=== PATIENT | female | born 1970 | race Caucasian/White ===

== ENCOUNTER 2020-03-13 07:58 | Day surgery (SDC) | payer OTHER, BC ==
[~2020-03-13] VITALS: Ht 160 cm; Wt 79.8 kg
[~2020-03-13 07:58] MED LIST: ALLEGRA-D 24 H1 EACH PO; AMBIEN10 MG; ATIVAN1 MG PO; AZO URINARY P97.5 MG PO; CALCIUM600 MG PO; CORTISPORIN CR7.5 GM TOP; DEXAMETHASONE4 MG PO; DULCOLAX STOOL100 M1 PO; EMERGEN-C 1,01000 MG PO; FLONASE ALLERG9.9 ML; FLUOXETINE HCL10 M1 PO; IMODIUM A-D2 M2 PO; IRON325 M1 PO; KEFLEX500 MG PO; MIRALAX17 GM PO; ONDANSETRON ODT8 MG PO; PACLITAXEL6 MG/1 ML IV; PREDNISONE20 MG PO; PROBIOTIC1 EAC1 PO; SUDAFED 12 HOU120 MG PO; TESSALON PERLE100 MG PO; THERAFLU SEVER1 EAC3 PO; TYLENOL EXTRA500 MG PO; VITAMIN C500 M1 PO; VITAMIN D35000 UNI1 PO; VITAMIN E100 UNI1 PO
--- NOTE | 2020-03-13 10:34 | NUR ---
03/13/20 1034 Sita Goodson 1019 PT ARRIVED IN PACU NON RESPONSIVE TO NOXIOUS STIMULI WITH OPA IN PLACE. 1033 PT REACTIVE. OPA REMOVED. NO C/O'S.
[2020-03-13] MEDS ORDERED: IBUPROFEN600 MG PO (10:51)
[2020-03-13] MEDS ORDERED: ACETAMINOPHEN500 MG PO (10:52)
[2020-03-13] MEDS ORDERED: OXYCODON-ACETA1 EAC2 PO (10:52)
--- NOTE | 2020-03-13 11:10 | NUR ---
PT IS BACK TO FROM PACU. SHE IS REPORTING NO PAIN, BUT DOES REPORT TINGLING IN HER LEFT HAND. WATER ON BEDSIDE TABLE. CALL LIGHT WITHIN REACH. NO ADDITIONAL NEEDS.
--- NOTE | 2020-03-13 13:04 | NUR ---
PT WAS TAKEN TO [facility] SITTING IN RM WAITING. HE SEEMS TO BE COMFORTABLE HAS NO NEEDS AT THIS TIME. GAVE ENCOURAGEMENT AND BLESSSING. WILL FOLLOW
--- NOTE | 2020-03-14 11:46 | OR ---
[facility] [address] [place], [place] [address] Signed DATE OF OPERATION: 03/13/2020 SURGEON: Trung Coe MD PREOPERATIVE DIAGNOSES: 1. History of stage III triple negative breast cancer, left side, status post modified radical mastectomy, radiation therapy and chemotherapy. 2. Left cervical adenopathy. POSTOPERATIVE DIAGNOSES: Probable metastatic disease to left posterior triangle and external jugular lymph node chain. PROCEDURE: Deep incisional lymph node biopsy, cervical lymph nodes. ANESTHESIA: General LMA; Rubina Mitzi, GENERATION MANAGER, and local 10 mL of 0.25% Marcaine with epinephrine. INDICATION: This 49-year-old white woman is a patient of Dr. Roldan and additionally, Dr. Saleem and Dr. Browning. She underwent a left modified radical mastectomy for a large left breast cancer in [place] over a year ago and subsequent right subcutaneous mastectomy. She has had radiation therapy to the chest wall and supraclavicular area as well as chemotherapy. As her tumor was a triple negative (ER, AL, HER-2/kaykay negative) cancer. She has recently been noted to have adenopathy in the supraclavicular area essentially in the posterior triangle and referred by Dr. Saleem for lymph node biopsy to assess for metastatic disease. She understands the risks of bleeding, infection, nerve injury, and other unforeseen complications related to this procedure and wished to proceed. FINDINGS: Lymphadenopathy was dense and fibrotic and highly suspect for metastatic disease. The lymph node tissue could not be excised completely. Incisional biopsy was undertaken in an anatomic way noting the external jugular vein and additionally, the spinal accessory nerve in relation to the trapezius muscle. Other local structures of the deep neck were identified and preserved. Adequate tissue was excised for pathologic diagnosis, but complete extirpation of the lymphadenopathy could not reasonably be undertaken. DESCRIPTION OF PROCEDURE: Electronically Signed By: TRUNG COE MD 03/14/20 1146 PATIENT NAME: CONRAD SILVEIRA OPERATIVE REPORT DATE OF : 70 REPORT #: [id number] PHYSICIAN: TRUNG COE MD PCP: MYLENE ROLDAN MD REPORT IS CONFIDENTIAL AND NOT TO BE RELEASED WITHOUT AUTHORIZATION [facility] [address] [place], [place] [address] Signed The patient was brought to the operating room, given a general anesthetic by LMA technique. Preoperative antibiotic Ancef was given. Sequential compression device stockings were used. The head was turned somewhat to the right and the left neck and upper torso prepared with chlorhexidine solution and draped sterilely. Palpation of the dense mass in the supraclavicular area laterally and somewhat superiorly was undertaken. A transverse incision was made directly over it. Dissection was carried through the skin with sharp dissection and electrocautery. The platysmal layer was divided. Further dissection was undertaken bluntly and with hemostat the deep soft tissues were explored. The dense lymph node tissue was adherent to local structures quite markedly. With meticulous dissection using sharp dissection and a #15 blade, local structures could be identified including there appeared to be transverse cervical nerve branches superficially and transversely oriented blood vessels as well. The edge of the lymph node tissue most accessible was gently grasped and dissection carried behind it using sharp dissection, identifying what appeared to be the wall of the external jugular vein. The lymph tissue was dissected free from it, mindful that there remained another tissue behind and deep to it. Further dissection was undertaken providing for adequate incisional lymph node tissue extraction. The spinal accessory nerve was identified near the edge of the trapezius muscle and appeared to be functional. Two clips were used to mary lou the depths of the underlying dissection for future reference as regard imaging studies. The wound was then closed in layers with interrupted 2-0 Vicryl and running subcuticular 3-0 Vicryl for the skin. Steri-Strips were applied. Photographs were taken. A silver sponge dressing was also applied. The patient was ultimately extubated and transferred to the recovery room in good condition having suffered no complication. MD KRISTINA Oconnell/KALIEL /[id number] cc: MD Tyler Weir MD Juno Choe, MD, PH.D. Electronically Signed By: TRUNG COE MD 03/14/20 1146 PATIENT NAME: CONRAD SILVEIRA OPERATIVE REPORT DATE OF : 70 REPORT #: [id number] PHYSICIAN: TRUNG COE MD PCP: MYLENE ROLDAN MD REPORT IS CONFIDENTIAL AND NOT TO BE RELEASED WITHOUT AUTHORIZATION [address] [address] Signed Copies: MYLENE ROLDAN MD, ROBERT C MD CHOE, JUNO ~ Electronically Signed By: TRUNG COE MD 03/14/20 1146 PATIENT NAME: CONRAD SILVEIRA OPERATIVE REPORT DATE OF : 70 REPORT #: [id number] PHYSICIAN: TRUNG COE MD PCP: MYLENE ROLDAN MD REPORT IS CONFIDENTIAL AND NOT TO BE RELEASED WITHOUT AUTHORIZATION
--- NOTE | 2020-03-14 16:38 | PATH ---
[facility] [address] [place], [place] [address] Signed SPECIMEN(S): A LEFT SCALENE LYMPH NODE SPECIMEN SOURCE: A. LEFT SCALENE LYMPH NODE CLINICAL HISTORY: Adenopathy of left neck. FINAL PATHOLOGIC DIAGNOSIS: Soft tissue, left scalene, excision: - Metastatic ductal carcinoma with associated calcifications. - See Comment. COMMENT: The patient's history of high grade invasive ductal carcinoma of the left breast status post mastectomy and axillary dissection in 2019 is noted. Sections demonstrate high grade carcinoma infiltrating fibroadipose tissue and within lymphovascular spaces. No definitive lymph node tissue is identified. Immunohistochemical stains (with appropriately staining controls) were performed. The tumor cells are positive for CK7, MARYANNE-3, and mammaglobin, confirming breast origin. The combined morphologic and immunophenotypic profile is in keeping with the diagnosis of metastatic ductal carcinoma. The results were discussed with Dr. Vásquez on 03/14/2020. NAL:cml:C1NR MICROSCOPIC EXAMINATION: Histologic sections of all submitted blocks are examined by light microscopy. These findings, together with the gross examination, support the pathologic diagnosis. GROSS DESCRIPTION: The specimen, labeled "LR," and designated on the requisition "left scalene lymph node tissue," is received in formalin and consists of five possible lymph nodes (ranging in size from 0.5 x 0.4 x 0.2 cm to 1.6 x 1.0 x 0.4 cm) each with scant attached soft tissue. The specimen is submitted entirely as follows: (A1) Four possible lymph nodes, intact (A2) One possible lymph node, serially sectioned AC (under the direct supervision of a pathologist) The Gross Description was prepared using a voice recognition system. The PATIENT NAME: CONRAD SILVEIRA PATHOLOGY DATE OF : 70 REPORT #: [id number] PHYSICIAN: [facility] PATH[facility] PCP: MYLENE DAVIS MD REPORT IS CONFIDENTIAL AND NOT TO BE RELEASED WITHOUT AUTHORIZATION [facility] [address] [place], [place] [address] Signed report was reviewed for accuracy; however, sound-alike word errors, addition and/or deletions may occur. If there is any question about this report, please contact Client Services. ADDITIONAL NOTES: Immunohistochemical and/or in situ hybridization studies were performed on this case with the appropriate positive controls that react as expected. This test was developed and its performance characteristics determined by [facility]. It has not been cleared or approved by the U.S. Food and Drug Administration. The FDA has determined that such clearance or approval is not necessary. This test is used for clinical purposes. It should not be regarded as investigational or for research. [facility] is certified under the Clinical Laboratory Improvement Amendments of 1988 (CLIA) as qualified to perform high complexity clinical laboratory testing. PERFORMING LABORATORY: The technical component was performed by [facility], [address] [place] [id number] (Badger Distiller Operator: Mireya Elise MD; CLIA# [id number]). [facility] [address] [address] (CLIA# [id number]). Diagnostician: May Rao MD Pathologist Electronically Signed 03/14/2020 Copies: ~ PATIENT NAME: CONRAD SILVEIRA PATHOLOGY DATE OF : 70 REPORT #: [id number] PHYSICIAN: [facility] PCP: MYLENE DAVIS MD REPORT IS CONFIDENTIAL AND NOT TO BE RELEASED WITHOUT AUTHORIZATION
== END 2020-03-13 12:30 | disposition home or self-care (01) ==
LOC: DS 07:58
PROVIDERS: Surgery
PROC: 07B20ZX Excision of Left Neck Lymphatic, Open Approach, Diagnostic (ICD-10-PCS; principal; 2020-03-13 08:45)
DX: C76.0 Malignant neoplasm of head, face and neck (principal); Z79.899 Other long term (current) drug therapy; Z88.0 Allergy status to penicillin; Z85.3 Personal history of malignant neoplasm of breast
CPT/HCPCS: J1100; J1644; J1885; J1956; J2001; J2250; J2405; J2704; J7121